=== PATIENT | male | born 1985 | race Caucasian/White ===

== ENCOUNTER 2018-07-20 15:47 | Emergency (ER) | payer SELFPAY ==
[~2018-07-20] VITALS: Ht 167.6 cm; Wt 82.0 kg
[2018-07-20 15:50] VITALS: BP 155/104
[2018-07-20 18:09] LABS: CLARITY URINE CLEAR (CLEAR); COLOR URINE YELLOW (YELLOW); KETONES URINE NEGATIVE (NEGATIVE); LEUKOCYTE ESTERASE URINE NEGATIVE (NEGATIVE); NITRITE URINE NEGATIVE (NEGATIVE); OCCULT BLOOD URINE NEGATIVE (NEGATIVE); PROTEIN URINE NEGATIVE (NEGATIVE); SPECIFIC GRAVITY URINE 1.041 (1.005-1.030)
== END 2018-07-20 18:41 | disposition home or self-care (01) ==
LOC: ER 16:55
DX: S30.812A Abrasion of penis, initial encounter (principal); B37.9 Candidiasis, unspecified; B35.6 Tinea cruris; E11.9 Type 2 diabetes mellitus without complications; E74.8 Other specified disorders of carbohydrate metabolism; W45.8XXA Other foreign body or object entering through skin, initial encounter; Y93.89 Activity, other specified; Y92.89 Other specified places as the place of occurrence of the external cause; Y99.8 Other external cause status
CPT/HCPCS: 99283